=== PATIENT | male | born 1985 | race American Indian/Alaskan Native ===

== ENCOUNTER 2017-05-05 11:48 | Emergency (ER) | payer SELFPAY ==
[2017-05-05] MEDS ORDERED: Ondansetron 4 MG/2 ML SDV IVPUSH ONE (12:05)
[2017-05-05] MEDS ORDERED: Sodium Chloride 0.9% 10 ML Syringe FLUSH PRN (12:05)
[2017-05-05] MEDS ORDERED: Insulin Regular, Human 100 Units/ML 3 ML Vial IVPUSH ONE (12:07)
[2017-05-05] MEDS ORDERED: Sodium Chloride 0.9% 1,000 ML IV SCH ×4 (12:15→15:45)
[2017-05-05] MEDS: Sodium Chloride 0.9% 1,000 ML ONE ×2 (13:33→14:24)
--- NOTE | 2017-05-05 13:39 | EDM.PDOC ---
ED HPI GENERAL MEDICAL PROBLEM - General Chief Complaint: Diabetic Complaint Stated Complaint: THROWING UP X 2 DAYS, DIABETIC Time Seen by Provider: 05/05/17 11:59 Source of Information: Reports: Patient, RN Notes Reviewed - History of Present Illness INITIAL COMMENTS - FREE TEXT/NARRATIVE: 32-year-old male with long-standing history of insulin dependent diabetes on Humulin and Levemir insulin for that, ran out of his meds about 3-4 weeks ago. He apparently has just moved up to the area no working in the oil [place] he is not taken time more effort to see a provider and get back on medication. He is also on metformin and an oral hypoglycemic as well. He states he started becoming more ill about 3-4 days ago. He is had some nausea and vomiting more severe today. He is had polyuria and polydipsia. His mouth feels very weak. Today he does feel somewhat weak and dizzy when standing and walking. He was at work this morning and became too ill to continue working and therefore comes to the ED at this time. - Related Data Allergies Allergy/AdvReac Type Severity Reaction Status Date / Time No Known Allergies Allergy Verified 05/05/17 11:59 Home Meds: Home Meds Cephalexin 500 mg PO QID #30 capsule 05/05/17 [Rx] Insulin Aspart [NovoLOG] 1 injection SQ TID 05/05/17 [History] Insulin Detemir [Levemir] 20 units SQ BID 05/05/17 [History] Lisinopril 10 mg PO DAILY 05/05/17 [History] glipiZIDE [Glipizide ER] 10 mg PO DAILY #30 tab.er.24 05/05/17 [Rx] glipiZIDE [Glucotrol XL] 1 tab PO DAILY 05/05/17 [History] metFORMIN [Glucophage] 1 tab PO BID 05/05/17 [History] metFORMIN [Glucophage] 500 mg PO BIDMEALS #30 tablet 05/05/17 [Rx] Past Medical History Cardiovascular History: Reports: Hypertension Endocrine/Metabolic History: Reports: Diabetes, Type II Social & Family History - Tobacco Use Smoking Status *Q: Current Every Day Smoker Years of Tobacco use: 20 Packs/Tins Daily: 1 - Caffeine Use Caffeine Use: Reports: Coffee - Recreational Drug Use Recreational Drug Use: No ED ROS GENERAL - Review of Systems Review Of Systems: See Below Constitutional: Denies: Fever, Chills, Diaphoresis HEENT: Denies: Sinus Problem, Throat Pain Respiratory: Denies: Shortness of Breath, Pleuritic Chest Pain Cardiovascular: Denies: Chest Pain GI/Abdominal: Reports: Nausea, Vomiting (Vomiting started 2 or 3 days ago, much more frequent this morning). Denies: Abdominal Pain Musculoskeletal: Reports: No Symptoms Skin: Reports: No Symptoms Neurological: Reports: Dizziness. Denies: Numbness, Tingling, Trouble Speaking , Difficulty Walking ED EXAM GENERAL NO PERIP PULSE - Physical Exam Exam: See Below General Appearance: Alert, Mild Distress Eye Exam: Bilateral Eye: PERRL Throat/Mouth: Other Head: No: Facial Swelling Neck: Supple, Full Range of Motion Respiratory/Chest: No Respiratory Distress, Lungs Clear, Normal Breath Sounds Cardiovascular: Tachycardia GI/Abdominal: Soft, Non-Tender. No: Guarding Extremities: Normal Range of Motion, Redness (Very mild erythema, tenderness lateral base finger of left hand) Neurological: Alert, Oriented, No Motor/Sensory Deficits Skin Exam: Warm, Dry, Normal Color Course - Vital Signs Last Recorded V/S: Last Vital Signs Temp 98.7 F 05/05/17 11:59 Pulse 125 H 05/05/17 11:59 Resp 18 05/05/17 11:59 BP 161/105 H 05/05/17 11:59 Pulse Ox 98 05/05/17 11:59 Orthostatic Blood Pressure [ 121/93 Standing] Orthostatic Blood Pressure [ 120/81 Supine] - Orders/Labs/Meds Orders: Active Orders 24 hr Category Date Time Status Peripheral IV Care [RC] . DIRECTED Care 05/05/17 12:06 Active Insulin Regular, Human [HumuLIN R] 100 unit Med 05/05/17 12:15 Active Sodium Chloride 0.9% [Normal Saline] 99 ml IV TITRATE Sodium Chloride 0.9% [Normal Saline] 1,000 ml Med 05/05/17 13:45 Active IV ASDIRECTED Sodium Chloride 0.9% [Normal Saline] 1,000 ml Med 05/05/17 14:30 Active IV ASDIRECTED Sodium Chloride 0.9% [Normal Saline] 1,000 ml Med 05/05/17 15:45 Active IV ASDIRECTED Sodium Chloride 0.9% [Normal Saline] 1,000 ml Med 05/05/17 12:15 Active IV ONETIME Sodium Chloride 0.9% [Saline Flush] Med 05/05/17 12:05 Active 10 ml FLUSH ASDIRECTED PRN Peripheral IV Insertion Adult [OM.PC] Stat Oth 05/05/17 12:05 Ordered Medication Orders Sodium Chloride (Normal Saline) 1,000 mls @ 999 mls/hr IV ONETIME SHAUN Last Admin: 05/05/17 12:19 Dose: 999 mls/hr Insulin Human Regular 100 unit (/ Sodium Chloride) 100 mls @ 5 mls/hr IV TITRATE SHAUN; 5 UNITS/HR PRN Reason: Protocol Last Titration: 05/05/17 13:46 Dose: 2 units/hr, 2 mls/hr Admin: 05/05/17 12:36 Dose: 5 units/hr, 5 mls/hr Sodium Chloride (Normal Saline) 1,000 mls @ 999 mls/hr IV ASDIRECTED SHAUN Last Admin: 05/05/17 13:37 Dose: 999 mls/hr Sodium Chloride (Normal Saline) 1,000 mls @ 999 mls/hr IV ASDIRECTED SHAUN Last Admin: 05/05/17 14:28 Dose: 999 mls/hr Sodium Chloride (Normal Saline) 1,000 mls @ 75 mls/hr IV ASDIRECTED SHAUN Last Admin: 05/05/17 15:50 Dose: 75 mls/hr Sodium Chloride (Saline Flush) 10 ml FLUSH ASDIRECTED PRN PRN Reason: Keep Vein Open Last Admin: 05/05/17 12:25 Dose: 10 ml Labs: Laboratory Tests 05/05/17 05/05/17 05/05/17 Range/Units 12:05 12:05 12:07 WBC 6.47 (4.23-9.07) K/mm3 RBC 5.28 (4.63-6.08) M/mm3 Hgb 16.4 (13.7-17.5) gm/L Hct 45.3 (40.1-51.0) % MCV 85.8 (79.0-92.2) fl MCH 31.1 (25.7-32.2) pg MCHC 36.2 H (32.2-35.5) g/dl RDW Std Deviation 39.3 (35.1-43.9) fL Plt Count 352 H (163-337) K/mm3 MPV 11.0 (9.4-12.3) fl Neut % (Auto) 66.2 (34.0-67.9) % Lymph % (Auto) 26.4 (21.8-53.1) % [place] % (Auto) 6.2 (5.3-12.2) % Eos % (Auto) 0.5 L (0.8-7.0) Baso % (Auto) 0.2 (0.1-1.2) % Neut # (Auto) 4.29 (1.78-5.38) K/mm3 Lymph # (Auto) 1.71 (1.32-3.57) K/mm3 [place] # (Auto) 0.40 (0.30-0.82) K/mm3 Eos # (Auto) 0.03 L (0.04-0.54) K/mm3 Baso # (Auto) 0.01 (0.01-0.08) K/mm3 Puncture Site Rt radial ABG pH 7.37 (7.35-7.45) ABG pCO2 42.5 (35.0-45.0) mmHg ABG pO2 73.0 L (80.0-100.0) mmHg ABG HCO3 23.9 (22.0-26.0) meq/L ABG O2 Saturation 93.6 L (96.0-97.0) % ABG Base Excess -0.9 (-2-2.0) Marcello Test Positive A-a Gradient 8 mmHg O2 Delivery Device Room air FiO2 21.00 (21.00-100.00) % Sodium 129 L (136-145) mEq/L Potassium 4.2 (3.5-5.1) mEq/L Chloride 91 L (98-107) mEq/L Carbon Dioxide 23 (21-32) mEq/L Anion Gap 19.2 H (5-15) BUN 14 (7-18) mg/dL Creatinine 1.3 (0.7-1.3) mg/dL Est Cr Clr Drug Dosing 88.71 mL/min Estimated GFR (MDRD) > 60 (>60) mL/min BUN/Creatinine Ratio 10.8 L (14-18) Glucose 869 H* (74-106) mg/dL POC Glucose (70-105) mg/dL Lactic Acid (0.4-2.0) mmol/L Calcium 10.1 (8.5-10.1) mg/dL Total Bilirubin 0.6 (0.2-1.0) mg/dL AST 23 (15-37) U/L ALT 37 (16-63) U/L Alkaline Phosphatase 183 H (46-116) U/L Total Protein 7.9 (6.4-8.2) g/dl Albumin 4.3 (3.4-5.0) g/dl Globulin 3.6 gm/dL Albumin/Globulin Ratio 1.2 (1-2) 05/05/17 05/05/17 05/05/17 Range/Units 12:25 13:43 14:06 WBC (4.23-9.07) K/mm3 RBC (4.63-6.08) M/mm3 Hgb (13.7-17.5) gm/L Hct (40.1-51.0) % MCV (79.0-92.2) fl MCH (25.7-32.2) pg MCHC (32.2-35.5) g/dl RDW Std Deviation (35.1-43.9) fL Plt Count (163-337) K/mm3 MPV (9.4-12.3) fl Neut % (Auto) (34.0-67.9) % Lymph % (Auto) (21.8-53.1) % [place] % (Auto) (5.3-12.2) % Eos % (Auto) (0.8-7.0) Baso % (Auto) (0.1-1.2) % Neut # (Auto) (1.78-5.38) K/mm3 Lymph # (Auto) (1.32-3.57) K/mm3 [place] # (Auto) (0.30-0.82) K/mm3 Eos # (Auto) (0.04-0.54) K/mm3 Baso # (Auto) (0.01-0.08) K/mm3 Puncture Site ABG pH (7.35-7.45) ABG pCO2 (35.0-45.0) mmHg ABG pO2 (80.0-100.0) mmHg ABG HCO3 (22.0-26.0) meq/L ABG O2 Saturation (96.0-97.0) % ABG Base Excess (-2-2.0) Marcello Test A-a Gradient mmHg O2 Delivery Device FiO2 (21.00-100.00) % Sodium (136-145) mEq/L Potassium (3.5-5.1) mEq/L Chloride (98-107) mEq/L Carbon Dioxide (21-32) mEq/L Anion Gap (5-15) BUN (7-18) mg/dL Creatinine (0.7-1.3) mg/dL Est Cr Clr Drug Dosing mL/min Estimated GFR (MDRD) (>60) mL/min BUN/Creatinine Ratio (14-18) Glucose (74-106) mg/dL POC Glucose 256 H 216 H (70-105) mg/dL Lactic Acid 1.4 (0.4-2.0) mmol/L Calcium (8.5-10.1) mg/dL Total Bilirubin (0.2-1.0) mg/dL AST (15-37) U/L ALT (16-63) U/L Alkaline Phosphatase (46-116) U/L Total Protein (6.4-8.2) g/dl Albumin (3.4-5.0) g/dl Globulin gm/dL Albumin/Globulin Ratio (1-2) 05/05/17 05/05/17 05/05/17 Range/Units 14:40 15:29 16:32 WBC (4.23-9.07) K/mm3 RBC (4.63-6.08) M/mm3 Hgb (13.7-17.5) gm/L Hct (40.1-51.0) % MCV (79.0-92.2) fl MCH (25.7-32.2) pg MCHC (32.2-35.5) g/dl RDW Std Deviation (35.1-43.9) fL Plt Count (163-337) K/mm3 MPV (9.4-12.3) fl Neut % (Auto) (34.0-67.9) % Lymph % (Auto) (21.8-53.1) % [place] % (Auto) (5.3-12.2) % Eos % (Auto) (0.8-7.0) Baso % (Auto) (0.1-1.2) % Neut # (Auto) (1.78-5.38) K/mm3 Lymph # (Auto) (1.32-3.57) K/mm3 [place] # (Auto) (0.30-0.82) K/mm3 Eos # (Auto) (0.04-0.54) K/mm3 Baso # (Auto) (0.01-0.08) K/mm3 Puncture Site ABG pH (7.35-7.45) ABG pCO2 (35.0-45.0) mmHg ABG pO2 (80.0-100.0) mmHg ABG HCO3 (22.0-26.0) meq/L ABG O2 Saturation (96.0-97.0) % ABG Base Excess (-2-2.0) Marcello Test A-a Gradient mmHg O2 Delivery Device FiO2 (21.00-100.00) % Sodium (136-145) mEq/L Potassium (3.5-5.1) mEq/L Chloride (98-107) mEq/L Carbon Dioxide (21-32) mEq/L Anion Gap (5-15) BUN (7-18) mg/dL Creatinine (0.7-1.3) mg/dL Est Cr Clr Drug Dosing mL/min Estimated GFR (MDRD) (>60) mL/min BUN/Creatinine Ratio (14-18) Glucose (74-106) mg/dL POC Glucose 221 H 224 H 178 H (70-105) mg/dL Lactic Acid (0.4-2.0) mmol/L Calcium (8.5-10.1) mg/dL Total Bilirubin (0.2-1.0) mg/dL AST (15-37) U/L ALT (16-63) U/L Alkaline Phosphatase (46-116) U/L Total Protein (6.4-8.2) g/dl Albumin (3.4-5.0) g/dl Globulin gm/dL Albumin/Globulin Ratio (1-2) 05/05/17 Range/Units 17:31 WBC (4.23-9.07) K/mm3 RBC (4.63-6.08) M/mm3 Hgb (13.7-17.5) gm/L Hct (40.1-51.0) % MCV (79.0-92.2) fl MCH (25.7-32.2) pg MCHC (32.2-35.5) g/dl RDW Std Deviation (35.1-43.9) fL Plt Count (163-337) K/mm3 MPV (9.4-12.3) fl Neut % (Auto) (34.0-67.9) % Lymph % (Auto) (21.8-53.1) % [place] % (Auto) (5.3-12.2) % Eos % (Auto) (0.8-7.0) Baso % (Auto) (0.1-1.2) % Neut # (Auto) (1.78-5.38) K/mm3 Lymph # (Auto) (1.32-3.57) K/mm3 [place] # (Auto) (0.30-0.82) K/mm3 Eos # (Auto) (0.04-0.54) K/mm3 Baso # (Auto) (0.01-0.08) K/mm3 Puncture Site ABG pH (7.35-7.45) ABG pCO2 (35.0-45.0) mmHg ABG pO2 (80.0-100.0) mmHg ABG HCO3 (22.0-26.0) meq/L ABG O2 Saturation (96.0-97.0) % ABG Base Excess (-2-2.0) Marcello Test A-a Gradient mmHg O2 Delivery Device FiO2 (21.00-100.00) % Sodium (136-145) mEq/L Potassium (3.5-5.1) mEq/L Chloride (98-107) mEq/L Carbon Dioxide (21-32) mEq/L Anion Gap (5-15) BUN (7-18) mg/dL Creatinine (0.7-1.3) mg/dL Est Cr Clr Drug Dosing mL/min Estimated GFR (MDRD) (>60) mL/min BUN/Creatinine Ratio (14-18) Glucose (74-106) mg/dL POC Glucose 228 H (70-105) mg/dL Lactic Acid (0.4-2.0) mmol/L Calcium (8.5-10.1) mg/dL Total Bilirubin (0.2-1.0) mg/dL AST (15-37) U/L ALT (16-63) U/L Alkaline Phosphatase (46-116) U/L Total Protein (6.4-8.2) g/dl Albumin (3.4-5.0) g/dl Globulin gm/dL Albumin/Globulin Ratio (1-2) Meds: Medications Generic Name Dose Route Start Last Admin Trade Name Richard PRN Reason Stop Dose Admin Sodium Chloride 1,000 mls @ 999 mls/hr 05/05/17 12:15 05/05/17 12:19 Normal Saline IV 999 mls/hr ONETIME SHAUN Administration Insulin Human Regular 100 unit 100 mls @ 5 mls/hr 05/05/17 12:15 05/05/17 13: 46 / Sodium Chloride IV 2 units/hr TITRATE SHAUN 2 mls/hr Protocol Titration 5 UNITS/HR Sodium Chloride 1,000 mls @ 999 mls/hr 05/05/17 13:45 05/05/17 13:37 Normal Saline IV 999 mls/hr ASDIRECTED SHAUN Administration Sodium Chloride 1,000 mls @ 999 mls/hr 05/05/17 14:30 05/05/17 14:28 Normal Saline IV 999 mls/hr ASDIRECTED SHAUN Administration Sodium Chloride 1,000 mls @ 75 mls/hr 05/05/17 15:45 05/05/17 15:50 Normal Saline IV 75 mls/hr ASDIRECTED SHAUN Administration Sodium Chloride 10 ml 05/05/17 12:05 05/05/17 12:25 Saline Flush FLUSH 10 ml ASDIRECTED PRN Administration Keep Vein Open Discontinued Medications Generic Name Dose Route Start Last Admin Trade Name Richard PRN Reason Stop Dose Admin Acetaminophen 975 mg 05/05/17 14:14 05/05/17 14:22 Tylenol PO 05/05/17 14:15 975 mg NOW ONE Administration Sodium Chloride Confirm 05/05/17 13:24 05/05/17 14:24 Normal Saline Administered 05/05/17 13:25 Not Given Dose 1,000 mls @ as directed .ROUTE .STK-MED ONE Insulin Human Regular 5 unit 05/05/17 12:07 05/05/17 12:19 Humulin R IVPUSH 05/05/17 12:08 5 units ONETIME ONE Administration Protocol Ondansetron HCl 4 mg 05/05/17 12:05 05/05/17 12:23 Zofran IVPUSH 05/05/17 12:06 4 mg ONETIME ONE Administration - Re-Assessments/Exams Free Text/Narrative Re-Assessment/Exam: 05/05/17 13:05. Initial blood sugar came back greater than 400. A shunt was not very tachypnea so did not appear to be in severe metabolic acidosis. However mouth is dry, he is tachycardic. Insulin 5 units IV and started about 5 unit per hour insulin drip. The bolused 1 L of normal saline, started with a second liter. We'll recheck glucose at the 1 hour point from having started insulin and than go from there. Have also ordered ABGs. 05/05/17 16:00. Glucose came down very rapidly to 256 and then to 228 range. For insulin drip was stopped. We monitored his glucose for several more hours in the stayed in the 220 range other than dropping down to about 176, lowest reading and then back up to the 220 range. Over the 6 hours he has been here we have given a bit over 3 L of normal saline. His nausea is gone. He's been able to eat a sandwich. He feels tremendously better. He does come down from 120s on arrival into the 90s. He wants to be released and clinically it does seem reasonable to allow him to do that. Med refills been called into [facility]. Discharge instructions as documented 05/05/17 18:28. Just prior to discharge nurse informed me that when squeezing the and finger of his left hand that a small amount of pus came out from the paratrachea. That has been giving him some mild trouble with swelling, peeling of skin this last week or 2. Therefore he does have a very low-grade infection there. Prescribed cephalexin 500 mg 4 times a day to take for 1 week. Departure - Departure Time of Disposition: 17:52 Disposition: Home, Self-Care 01 Condition: Fair Clinical Impression: Hyperglycemia, Dehydration - Discharge Information Prescriptions: Cephalexin 500 mg PO QID #30 capsule glipiZIDE [Glipizide ER] 10 mg PO DAILY #30 tab.er.24 metFORMIN [Glucophage] 500 mg PO BIDMEALS #30 tablet Instructions: Type 1 Diabetes Mellitus, Adult Referrals: PCP,Not In Area [Primary Care Provider] - Forms: ED Department Discharge Additional Instructions: Drink plenty of water to maintain hydration, Levemir insulin 20 units twice daily as previously prescribed, NovoLog subcutaneous 3 times a day per previous dosage prescribed, glipizide and metformin as prescribed. Eat regular meals and snacks. Cephalexin antibiotic if needed for distal nailbed infection. See your medical provider when you get back home, return to ED as needed if symptoms worsening in any way - My Orders Last 24 Hours: My Active Orders 05/05/17 12:05 Sodium Chloride 0.9% [Saline Flush] 10 ml FLUSH ASDIRECTED PRN Peripheral IV Insertion Adult [OM.PC] Stat 05/05/17 12:06 Peripheral IV Care [RC] . DIRECTED 05/05/17 12:15 Insulin Regular, Human [HumuLIN R] 100 unit Sodium Chloride 0.9% [Normal Saline] 99 ml IV TITRATE Sodium Chloride 0.9% [Normal Saline] 1,000 ml IV ONETIME 05/05/17 13:45 Sodium Chloride 0.9% [Normal Saline] 1,000 ml IV ASDIRECTED 05/05/17 14:30 Sodium Chloride 0.9% [Normal Saline] 1,000 ml IV ASDIRECTED 05/05/17 15:45 Sodium Chloride 0.9% [Normal Saline] 1,000 ml IV ASDIRECTED - Assessment/Plan Last 24 Hours: My Active Orders 05/05/17 12:05 Sodium Chloride 0.9% [Saline Flush] 10 ml FLUSH ASDIRECTED PRN Peripheral IV Insertion Adult [OM.PC] Stat 05/05/17 12:06 Peripheral IV Care [RC] . DIRECTED 05/05/17 12:15 Insulin Regular, Human [HumuLIN R] 100 unit Sodium Chloride 0.9% [Normal Saline] 99 ml IV TITRATE Sodium Chloride 0.9% [Normal Saline] 1,000 ml IV ONETIME 05/05/17 13:45 Sodium Chloride 0.9% [Normal Saline] 1,000 ml IV ASDIRECTED 05/05/17 14:30 Sodium Chloride 0.9% [Normal Saline] 1,000 ml IV ASDIRECTED 05/05/17 15:45 Sodium Chloride 0.9% [Normal Saline] 1,000 ml IV ASDIRECTED
[2017-05-05] MEDS ORDERED: Acetaminophen 325 MG Tab PO ONE (14:14)
== END 2017-05-05 18:22 | disposition home or self-care (01) ==
LOC: JD.ED 11:48
DX: E11.65 Type 2 diabetes mellitus with hyperglycemia (principal); I10 Essential (primary) hypertension; E11.9 Type 2 diabetes mellitus without complications; F17.210 Nicotine dependence, cigarettes, uncomplicated; E86.0 Dehydration; Z79.4 Long term (current) use of insulin
CPT/HCPCS: 36415; 36600; 80053; 82803; 82962; 83605; 85025; 96361; 96365; 96366; 96375; 99284; A9270; J1817; J2405; J7040; J7050